=== PATIENT | female | born 1955 | race Asian ===

== ENCOUNTER 2018-08-31 17:43 | Inpatient (IN) | payer MEDICAID ==
[~2018-08-31] VITALS: Ht 162.6 cm; Wt 76.2 kg
[2018-08-31 18:03] VITALS: Ht 162.6 cm; Wt 76.2 kg
[2018-08-31 18:58] LABS: UA SPECIFIC GRAVITY >=1.030 (1.005-1.035); microscopic required? YES; urine erythrocyte 3+ (NEGATIVE)
[2018-08-31 19:01] LABS: BASOPHIL % 0.2 % (0-2); PLATELET COUNT 183 x10^3mcL (130-400); RED CELL DISTRIBUTION WIDTH 13.1 % (11.5-14.5)
[2018-08-31 19:19] LABS: CALCIUM 9.2 mg/dL (8.5-10.1); CARBON DIOXIDE 25.7 mmol/L (21-32); CHLORIDE SERUM 99 mmol/L (98-107); CREATININE SERUM 0.7 mg/dL (0.6-1.0); GFR1 > 60 mL/min; GLUCOSE SERUM 117 mg/dL (74-106); POTASSIUM SERUM 3.5 mmol/L (3.5-5.1); SODIUM SERUM 134 mmol/L (136-145)
[2018-08-31 19:23] LABS: ALBUMIN 4.1 g/dL (3.4-5.0); ALKALINE PHOSPHATASE 97 U/L (46-116); ALT/SGPT 102 U/L (14-59); AST/SGOT 71 U/L (15-37); BILIRUBIN TOTAL 0.8 mg/dL (0.20-1.00); LIPASE 158 IU/L (73-393); TOTAL PROTEIN, SERUM 10.5 g/dL (6.4-8.2)
[2018-08-31 20:46] LABS: MAGNESIUM 1.9 mg/dL (1.8-2.4); PHOSPHOROUS 4.5 mg/dL (2.5-4.9)
[2018-08-31 21:18] LABS: FREE T4 1.06 ng/dL (0.76-1.46); FREE THYROXINE INDEX 3.1 ug/dL (1.4-4.5); T4(THYROXINE) 11.3 ug/dL (4.7-13.3)
[2018-08-31 21:19] LABS: T3 TOTAL 1.25 ng/mL
[2018-09-01 00:44] VITALS: BP 123/73
[2018-09-01 05:17] VITALS: BP 100/50
[2018-09-01 06:20] LABS: PLATELET COUNT 158 x10^3mcL (130-400); RED CELL DISTRIBUTION WIDTH 12.7 % (11.5-14.5)
[2018-09-01 06:30] LABS: ALKALINE PHOSPHATASE 68 U/L (46-116); ALT/SGPT 77 U/L (14-59); AST/SGOT 51 U/L (15-37); BILIRUBIN TOTAL 0.81 mg/dL (0.20-1.00); CALCIUM 8.4 mg/dL (8.5-10.1); CARBON DIOXIDE 26.9 mmol/L (21-32); CHLORIDE SERUM 106 mmol/L (98-107); CREATININE SERUM 0.9 mg/dL (0.6-1.0); GFR1 > 60 mL/min; GLUCOSE SERUM 136 mg/dL (74-106); MAGNESIUM 1.9 mg/dL (1.8-2.4); PHOSPHOROUS 4.3 mg/dL (2.5-4.9); POTASSIUM SERUM 4.1 mmol/L (3.5-5.1); SODIUM SERUM 141 mmol/L (136-145); TOTAL PROTEIN, SERUM 8.2 g/dL (6.4-8.2)
[2018-09-01 06:32] LABS: ALBUMIN 3.1 g/dL (3.4-5.0)
[2018-09-01 07:04] LABS: BASOPHIL % 0 % (0-2)
[2018-09-01 08:20] VITALS: BP 101/60
[2018-09-01 16:36] VITALS: BP 104/61
[2018-09-01 21:24] VITALS: BP 109/59
[2018-09-02 06:02] VITALS: BP 99/58
[2018-09-02 06:48] LABS: BASOPHIL % 0.5 % (0-2); PLATELET COUNT 146 x10^3mcL (130-400); RED CELL DISTRIBUTION WIDTH 13.2 % (11.5-14.5)
[2018-09-02 06:57] LABS: CALCIUM 8.2 mg/dL (8.5-10.1); CARBON DIOXIDE 27.2 mmol/L (21-32); CHLORIDE SERUM 107 mmol/L (98-107); CREATININE SERUM 0.9 mg/dL (0.6-1.0); GFR1 > 60 mL/min; GLUCOSE SERUM 112 mg/dL (74-106); POTASSIUM SERUM 3.3 mmol/L (3.5-5.1); SODIUM SERUM 143 mmol/L (136-145)
[2018-09-02 08:43] VITALS: BP 109/62
[2018-09-02] MEDS ORDERED: NORCO1 TA2 PO (10:22)
[2018-09-02] MEDS ORDERED: GAS RELIEF 8080 MG PO (10:35)
[2018-09-02 11:21] VITALS: BP 109/62
[2018-09-02 17:11] VITALS: BP 121/73
[2018-09-02 20:23] VITALS: BP 113/62
[2018-09-03 04:59] VITALS: BP 116/61
[2018-09-03 07:13] LABS: CALCIUM 8.7 mg/dL (8.5-10.1); CHLORIDE SERUM 106 mmol/L (98-107); CREATININE SERUM 0.8 mg/dL (0.6-1.0); GFR1 > 60 mL/min; GLUCOSE SERUM 95 mg/dL (74-106); POTASSIUM SERUM 3.8 mmol/L (3.5-5.1); SODIUM SERUM 140 mmol/L (136-145)
[2018-09-03 07:14] LABS: BASOPHIL % 0.6 % (0-2); PLATELET COUNT 153 x10^3mcL (130-400); RED CELL DISTRIBUTION WIDTH 12.8 % (11.5-14.5)
[2018-09-03 09:34] VITALS: BP 140/79
[2018-09-03 10:48] VITALS: BP 109/62
== END 2018-09-03 11:43 | disposition home or self-care (01) | DRG 234 ==
LOC: ED 17:43 → MU 20:16
PROVIDERS: Emergency Medicine; General Practice; Surgery
PROC: 0DTJ4ZZ Resection of Appendix, Percutaneous Endoscopic Approach (ICD-10-PCS; principal; 2018-08-31 21:30)
DX: K35.80 Unspecified acute appendicitis (principal); N17.0 Acute kidney failure with tubular necrosis; E44.0 Moderate protein-calorie malnutrition; E87.6 Hypokalemia; E87.1 Hypo-osmolality and hyponatremia; R80.9 Proteinuria, unspecified; E66.3 Overweight; Z68.28 Body mass index [BMI] 28.0-28.9, adult
CPT/HCPCS: 84439; 94150; J0330; J1170; J1885; J2250; J2270; J2405; J2543; J2704; J2710; J3010; J3490; J7030; J7050; J7120; Q0092